=== PATIENT | female | born 1985 | race Caucasian/White ===

== ENCOUNTER 2016-09-26 13:10 | Emergency (ER) | payer OTHER ==
[~2016-09-26] VITALS: Ht 152.4 cm; Wt 137.0 kg
[2016-09-26 13:13] VITALS: Ht 152.4 cm; Wt 137.0 kg
--- NOTE | 2016-09-26 14:17 | ERD ---
ER Documentation Chief Complaint Date/Time DATE: 09/26/16 TIME: 14:15 Chief Complaint RT CALF PAIN SINCE SATURDAY HPI 31-year-old female history of obesity comes emergency department with right proximal calf pain for the past 3 days. She states that it started while she was walking down the stairs, feels similar to her previous Injury. She states that she fell several years ago, and is diffuse on her right calf, worse with walking better at rest. She has tried taking ibuprofen for the pain. She has not had any chest pain, shortness breath. No recent trauma. She states she was previously taking oral contraceptive pills but stopped 2 months ago. ROS All systems reviewed and are negative except as per history of present illness. Medications Home Meds Active Scripts Cyclobenzaprine Hcl* (Cyclobenzaprine Hcl*) 5 Mg Tablet, 5 MG PO Q8H Y for PAIN , #15 TAB Prov:JODY JONES PA-C 09/26/16 Naproxen* (Naprosyn*) 500 Mg Tablet, 500 MG PO BID Y for PAIN AND/OR INFLAMMATION, #30 TAB Prov:JODY JONES PA-C 09/26/16 Physical Exam Vitals Vital Signs Date Time Temp Pulse Resp B/P Pulse Ox O2 Delivery O2 Flow Rate FiO2 09/26/16 13:13 98.1 88 18 124/70 98 Physical Exam General: Well-developed, well-nourished. The patient appears in no acute distress. HEENT: Head is normocephalic, atraumatic. No scleral icterus. Neck: Supple. Nontender. Lungs: Clear to auscultation. Normal air movement. Heart: Regular rate and rhythm. S1 and S2 are normal. No murmurs, gallops, or rubs. Abdomen: Soft, nontender, nondistended. Bowel sounds are normoactive. Extremities: There is no swelling, no erythema, patient has tenderness over the insertion point of the gastrocnemius. Neurologic: Alert and oriented 3. No focal deficits. Skin: Normal turgor. No rash or lesions. Result Diagram: 09/26/16 1440 Results 24 hrs Laboratory Tests Test 09/26/16 14:40 Sodium Level 143mmol/L Potassium Level 3.3mmol/L Chloride Level 100mmol/L Carbon Dioxide Level 30mmol/L Anion Gap 16 Blood Urea Nitrogen 9mg/dl Creatinine 0.70mg/dl Glucose Level 94mg/dl Calcium Level 8.5mg/dl Current Medications Medications (Trade) Dose Ordered Sig/Vamsi Route PRN Reason Start Time Stop Time Status Last Admin Dose Admin Acetaminophen/ Hydrocodone Bitart ([place] (5/325)) 1 tab ONCE ONCE PO 09/26/16 14:30 09/26/16 14:31 DC 09/26/16 14:41 Ibuprofen (Motrin) 600 mg ONCE ONCE PO 09/26/16 14:30 09/26/16 14:31 DC 09/26/16 14:42 Potassium Chloride (Klor-Con 20) 40 meq ONCE STAT PO 09/26/16 15:26 09/26/16 15:27 DC DIAGNOSTIC IMAGING REPORT Patient: JONY PLATT : 1985 Age: 31 Sex: F MR #: [id number] DOS: 09/26/16 1401 Ordering MD: JODY JONES PA-C Location: [facility] Room/Bed: PROCEDURE: US right lower extremity veins. CLINICAL INDICATION: Right leg pain and swelling. TECHNIQUE: Multiple longitudinal and transverse images of the right lower extremity veins were obtained with bey scale and color Doppler imaging. The common femoral vein, femoral vein, and popliteal vein were evaluated. 2D grayscale measurements with compression sonography, pulsed Doppler, color Doppler, and pulsed Doppler with augmentation. COMPARISON: No prior studies are available for comparison. FINDINGS: The right common femoral, femoral and popliteal veins are normally compressible throughout. Color flow demonstrates normal filling of the vessels. Normal waveforms are visualized and there is normal response to augmentation. IMPRESSION: 1. No evidence of deep vein thrombosis involving the right lower extremity. RPTAT: QQ .Milan Rodriguez MD, MD Date Time Electronically viewed and signed by .Milan Rodriguez MD, MD on 09/26/2016 14:39 .R/ CC: JODY JONES PA-C Urine is negative. Procedures/MDM Medical decision making: This is a 31-year-old female presenting with right calf pain that appears to be muscular skeletal. There is no evidence of DVT on a sonographic ultrasound, labs, are normal aside from a mildly below normal potassium at 3.3. She was given Klor-Con in the emergency department. Patient' s pain appears to be musculoskeletal given that there is pain at the insertion point of the gastrocnemius. Other differentials include arterial occlusion, claudication, cellulitis, abscess. Departure Diagnosis: Primary Impression: Right calf pain Condition: Good JODY JONES PA-C Sep 26, 2016 14:16
[2016-09-26] MEDS ORDERED: IBUPROFEN 600 MG TAB PO ONE (14:30)
[2016-09-26] MEDS ORDERED: HYDROCODONE/APAP (5/325) TAB PO ONE (14:30)
--- NOTE | 2016-09-26 14:40 | RADRPT ---
PROCEDURE: US right lower extremity veins. CLINICAL INDICATION: Right leg pain and swelling. TECHNIQUE: Multiple longitudinal and transverse images of the right lower extremity veins were obt ained with bey scale and color Doppler imaging. The common femoral vein, femoral vein, and poplitea l vein were evaluated. 2D grayscale measurements with compression sonography, pulsed Doppler, color Doppler, and pulsed Doppler with augmentation. COMPARISON: No prior studies are available for comparison. FINDINGS: The right common femoral, femoral and popliteal veins are normally compressible throughout. Color f low demonstrates normal filling of the vessels. Normal waveforms are visualized and there is normal response to augmentation. IMPRESSION: 1. No evidence of deep vein thrombosis involving the right lower extremity. RPTAT: QQ .Milan Rodriguez MD, MD Date Time Electronically viewed and signed by .Milan Rodriguez MD, on 09/26/2016 14:39 .R/
[2016-09-26 15:18] LABS: CALCIUM 8.5 mg/dl (8.4-10.2); CREATININE 0.7 mg/dl (0.44-1.00); POTASSIUM 3.3 mmol/L (3.5-5.1)
[2016-09-26] MEDS ORDERED: POTASSIUM CHLORIDE (SR) 20 MEQ TAB PO STA (15:26)
[2016-09-26] MEDS ORDERED: CYCL5TAB PO (15:27)
[2016-09-26] MEDS ORDERED: NAPR-260 PO (15:27)
== END 2016-09-26 15:49 | disposition home or self-care (01) ==
LOC: FTE 13:10
DX: M79.661 Pain in right lower leg (principal); E66.9 Obesity, unspecified; Z68.43 Body mass index [BMI] 50.0-59.9, adult
CPT/HCPCS: 80048; 93971; Z7502; Z7610

== ENCOUNTER 2018-09-09 12:57 | Emergency (ER) | payer OTHER ==
[~2018-09-09] VITALS: Ht 152.4 cm; Wt 142.7 kg
[~2018-09-09 12:57] MED LIST: CYCL5TAB PO; NAPR-985 PO
[2018-09-09 12:58] VITALS: Ht 152.4 cm; Wt 142.7 kg
[2018-09-09] MEDS ORDERED: KETOROLAC 30 MG INJ IM STA (13:08)
--- NOTE | 2018-09-09 13:14 | ERD ---
ER Documentation Chief Complaint Chief Complaint worse chronic R knee pain, heard "pop" while standing today. hx of sciatica HPI This is a 33-year-old female presents ration of chronic right knee pain, states that she heard a pop while standing today, she endorses a history of sciatica. She denies any numbness or tingling, states ambulation is difficult. She does state that she has had pain to this knee for the last 2 years, and ambulation has been challenging over that period of time. She has not had any recent trauma, denies any numbness or tingling. ROS All systems reviewed and are negative except as per history of present illness. Medications Home Meds Active Scripts Ibuprofen* (Motrin*) 600 Mg Tab, 600 MG PO Q6H PRN for PAIN AND OR ELEVATED TEMP, #30 TAB Prov:VALDEMAR PRADO MD 09/09/18 Cyclobenzaprine Hcl* (Cyclobenzaprine Hcl*) 5 Mg Tablet, 5 MG PO Q8H PRN for PAIN, #15 TAB Prov:JODY JONES PA-C 09/26/16 Naproxen* (Naprosyn*) 500 Mg Tablet, 500 MG PO BID PRN for PAIN AND/OR INFLAMMATION, #30 TAB Prov:JODY JONES PA-C 09/26/16 Allergies Allergies: Coded Allergies: No Known Allergy (Unverified , 09/09/18) PMhx/Soc Hx Alcohol Use: No Hx Substance Use: No Hx Tobacco Use: No FmHx Family History: No diabetes Physical Exam Vitals Vital Signs Date Temp Pulse Resp B/P (MAP) Pulse Ox O2 O2 Flow FiO2 Time Delivery Rate 09/09/18 98.4 56 18 148/87 100 12:58 (107) Physical Exam Const: Well-developed, well-nourished, obese Head: Atraumatic Eyes: Normal conjunctiva ENT: Normal external ears, nose and mouth. Neck: Resp: Normal respiratory effort Cardio: Abd: Skin: Back: Ext: Right knee: Skin is intact, there is no swelling or effusion noted, there is no joint laxity., Negative anterior posterior drawer sign, there is no decreased range of motion laterally. There is no point tenderness, straight leg raise is intact, however there is some pain associated, distally posterior tibialis pulse is 2+ Neur: Awake and alert Psych: Normal mood and affect Results 24 hrs Current Medications Medications Dose Sig/Vamsi Start Time Status Last (Trade) Ordered Route PRN Stop Time Admin Dose Reason Admin Ketorolac 30 mg ONCE STAT 09/09/18 DC 09/09/18 Tromethamine IM 13:08 09/09/18 13:27 (Toradol) 13:11 Procedures/MDM 32-year-old female presents for evaluation of chronic knee pain, x-ray ordered to evaluate for occult fracture, although suspicion is low, she has no history of trauma and there is no joint laxity consistent with ACL rupture other ligamentous injury. She has no history consistent with a knee dislocation, pain control with Toradol. Patient had improvement in her pain, her x-ray showed no evidence of acute injury, she was provided with Adilson wrap and crutches, at discharge she was in no distress. Departure Diagnosis: Primary Impression: Knee pain Chronicity: unspecified Laterality: unspecified laterality Qualified Codes: M25.569 - Pain in unspecified knee Condition: Stable Referrals: [facility] VALDEMAR PRADO MD Sep 09, 2018 13:14
[2018-09-09] MEDS ORDERED: IBUP-1542 PO (14:08)
== END 2018-09-09 15:24 | disposition home or self-care (01) ==
LOC: E/R 12:57
DX: M25.561 Pain in right knee (principal)
CPT/HCPCS: 73562; 96372; J1885; Z7502